=== PATIENT | male | born 2000 | race Caucasian/White ===

== ENCOUNTER 2023-11-01 14:07 | Emergency (ER) | payer OTHER, SELFPAY ==
[2023-11-01 14:08] VITALS: BP 165/104; PULSE 87; RESP 14; TEMP 36; O2SAT 100; O2SAT 99; BMI 23.4
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
[2023-11-01] MEDS: Diphth,Pertuss(Acell),Tet Vac 0.5 ML Vial IM (15:50)
[2023-11-01] MEDS: Ibuprofen 200 MG Tablet 800 MG PO (15:53)
[2023-11-01 16:03] VITALS: BP 148/83; PULSE 60; RESP 16; TEMP 35.8; O2SAT 98
== END 2023-11-01 16:04 | disposition home or self-care (01) ==
LOC: ED 15:33
PROVIDERS: Emergency Provider Emergency Medicine; Visit Provider Emergency Medicine
DX: S01.01XA Laceration without foreign body of scalp, initial encounter (principal); W22.8XXA Striking against or struck by other objects, initial encounter; Y99.0 Civilian activity done for income or pay; F17.220 Nicotine dependence, chewing tobacco, uncomplicated; Z23 Encounter for immunization
CPT/HCPCS: 12002; 90471; 90715; 99283